=== PATIENT | female | born 1975 | race Caucasian/White ===

== ENCOUNTER 2016-11-08 12:56 | Emergency (ER) | payer OTHER ==
[2016-11-08 13:30] VITALS: BP 148/103; PULSE 98; RESP 16; TEMP 98.6; O2SAT 97
--- NOTE | 2016-11-08 13:47 | UCPHY ---
H & P Patient Type: Established Chief Complaint Nursing Narrative: right hand and 5th finger inj sp fall on ice yest pm. cms intact in fingers Time Seen by Provider: 11/08/16 13:42 HPI/ROS: CHIEF COMPLAINT: Hand pain HISTORY OF PRESENT ILLNESS: The patient is a 41-year-old female who comes to the Urgent Care complaining of pain in her right little finger and thenar eminence after slipping and falling on the ice yesterday. She had immediate pain but it is slightly improved. She does have some bruising. She is concerned that her little finger is broken. No deformity. No abrasion or laceration. REVIEW OF SYSTEMS: Constitutional: denies: chills, fever, recent illness, recent injury EENTM: denies: blurred vision, double vision, nose congestion Respiratory: denies: cough, shortness of breath Cardiac: denies: chest pain, irregular heart rate, lightheadedness, palpitations Gastrointestinal/Abdominal: denies: abdominal pain, diarrhea, nausea, vomiting, blood streaked stools Genitourinary: denies: dysuria, frequency, hematuria, pain Musculoskeletal: See HPI Skin: denies: lesions, rash, jaundice, bruising Neurological: denies: headache, numbness, paresthesia, tingling, dizziness, weakness Hematologic/Lymphatic: denies: blood clots, easy bleeding, easy bruising Immunologic/allergic: denies: HIV/AIDS, transplant EXAM: GENERAL: Well-appearing, well-nourished and in no acute distress. HEAD: Atraumatic, normocephalic. EYES: Pupils equal round and reactive to light, extraocular movements intact, sclera anicteric, conjunctiva are normal. ENT: TMs normal, nares patent, oropharynx clear without exudates. Moist mucous membranes. NECK: Normal range of motion, supple without lymphadenopathy or JVD. LUNGS: Breath sounds clear to auscultation bilaterally and equal. No wheezes rales or rhonchi. HEART: Regular rate and rhythm without murmurs, rubs or gallops. ABDOMEN: Soft, nontender, normoactive bowel sounds. No guarding, no rebound. No masses appreciated. BACK: No CVA tenderness, no spinal tenderness, step-offs or deformities EXTREMITIES: Bruising and mild swelling to right little finger, small amount of bruising to the thenar eminence. Normal range of motion. Normal capillary refill. Normal strength. Normal range of motion, no pitting or edema. No clubbing or cyanosis. NEUROLOGICAL: Cranial nerves II through XII grossly intact. Normal speech, normal gait. 5/5 strength, normal movement in all extremities, normal sensation PSYCH: Normal mood, normal affect. SKIN: Warm, dry, normal turgor, no visible rashes or lesions. Source: Patient Exam Limitations: No limitations - Personal History LMP (Females 10-55): 8-14 Days Ago - Medical/Surgical History Hx Asthma: No Hx Chronic Respiratory Disease: No Hx Diabetes: No Hx Cardiac Disease: No Hx Renal Disease: No Hx Cirrhosis: No Hx Alcoholism: No Hx HIV/AIDS: No Hx Splenectomy or Spleen Trauma: No Other PMH: PCP [facility]. Tetanus UTD. Flu Immun NONE. Surgery discectomy lumbar. - Family History Significant Family History: No pertinent family hx - Social History Smoking Status: Never smoked Alcohol Use: Sober Drug Use: None Constitutional: Initial Vital Signs Temperature (C) 37 C 11/08/16 13:25 Heart Rate 98 11/08/16 13:25 Respiratory Rate 16 11/08/16 13:25 Blood Pressure 148/103 H 11/08/16 13:25 O2 Sat (%) 97 11/08/16 13:25 O2 Delivery Mode Room Air Allergies/Adverse Reactions: No Known Allergies Allergy (Unverified 08/11/14 16:36) Home Medications: Medication Instructions Recorded Lisinopril 11/08/16 Medical Decision Making - Diagnostics Imaging: X-ray: Hand x-ray was obtained. I viewed the images myself on the PACS system. My interpretation of the images is: Nondisplaced distal phalanx fracture. The radiologist interpretation is pending. Procedures: Procedure: Splint placement. A анна-tape splint was applied. After application of the splint I returned and re-examined the patient. The splint was adequately immobilizing the joint and distal to the splint the patient's circulation and sensation was intact. ED Course/Re-evaluation: 2:10 p.m. we discussed the x-ray results. Patient is happy with this plan. We will анна tape her finger. She declines further workup or testing. She will follow up with her primary doctor. Differential Diagnosis: Partial list of the Differential diagnosis considered include but were not limited to; fracture, abrasion, contusion, dislocation and although unlikely based on the history and physical exam, I also considered burn, non accidental trauma. I discussed these differential diagnoses and the plan with the patient as well as the usual and expected course. The patient understands that the diagnosis is provisional and that in medicine we are not always correct and that further workup is often warranted. Usual and customary warnings were given. All of the patient's questions were answered. The patient was instructed to return to the emergency department should the symptoms at all worsen or return, otherwise to followup with the physician as we discussed. Departure - Departure Disposition: Home, Routine, Self-Care Clinical Impression: Finger fracture Qualifiers: Encounter type: initial encounter Finger: little finger Fracture type: closed Phalanx: distal Fracture alignment: nondisplaced Laterality: right Qualifier Code: (S62.666A) Nondisplaced fracture of distal phalanx of right little finger , initial encounter for closed fracture Condition: Fair Instructions: Finger Fracture (ED) Referrals: Suad Chang MD [Primary Care Provider] - As per Instructions - PQRS PQRS Measurement: Not applicable
--- NOTE | 2016-11-08 14:02 | DX ---
Right Hand, Three Views History: Pain post trauma. Fall on ice yesterday. Jammed fifth finger. Findings: There are nondisplaced fractures associated with the distal phalanx of the fifth digit. One vertical intra-articular fracture is identified best on the lateral view, without displacement or wi dening. The DIP joint remains normally aligned. There is a small benign accessory ossicle distal to t he ulnar styloid tip. Impression: Intra-articular fracture of the base of the distal phalanx of the fifth finger.
== END 2016-11-08 14:16 | disposition home or self-care (01) ==
LOC: CED 12:56
DX: S62.666A Nondisplaced fracture of distal phalanx of right little finger, initial encounter for closed fracture (principal); W00.0XXA Fall on same level due to ice and snow, initial encounter
CPT/HCPCS: 73130-PO; 99214-PO; G0463-PO